=== PATIENT | female | born 1945 | race Caucasian/White ===

== ENCOUNTER → 2016-07-05 | Outpatient (CLI) | payer OTHER | LOC: FIMAGING 09:40 | PROVIDERS: ATTEND Nurse Practitioner Adult Health | DX: Z13.820 Encounter for screening for osteoporosis (principal); M85.80 Other specified disorders of bone density and structure, unspecified site; Z78.0 Asymptomatic menopausal state ==

== ENCOUNTER → 2016-10-04 | Outpatient (CLI) | payer OTHER | LOC: FIMAGING 09:43 | PROVIDERS: ATTEND Family Medicine | DX: Z12.31 Encounter for screening mammogram for malignant neoplasm of breast (principal); Z80.3 Family history of malignant neoplasm of breast | CPT/HCPCS: G0202 ==

== ENCOUNTER 2016-10-07 20:03 | Inpatient (IN) | payer OTHER ==
[2016-10-07] MEDS ORDERED: ONDANSETRON 4 MG/2 ML VIAL ONE (20:41)
[2016-10-07] MEDS ORDERED: NS 1,000 ML IV ONE (20:55)
[2016-10-07] MEDS ORDERED: ONDANSETRON 4 MG/2 ML VIAL IVP ONE (20:55)
--- NOTE | 2016-10-07 21:03 | EDPHY ---
H & P Stated Complaint: abd pain since 1729, +N/V Time Seen by Provider: 10/07/16 20:43 HPI/ROS: Chief Complaint: Abdominal pain HPI: 71-year-old woman with a history of colon cancer status post hemicolectomy years ago began having epigastric abdominal pain radiating down lower at 5:30 this evening. Patient has had similar episodes in the past. For prior episodes she would lay down flat on her back for 20 minutes and the pain would subsided. Patient states that tonight the pain has persisted for the last 3 and 0.5 hours. She has never had it last this long before. She did have some nausea and vomited once. No hematemesis. Had 2 normal bowel movements today. No constipation or diarrhea. No melena. No fevers or chills. No chest pain or shortness of breath. No urinary symptoms. ROS: PMH: Colon cancer status post hemicolectomy, glaucoma Medications: Glaucoma drops Allergies: None Social History: No smoking, occasional alcohol, no recreational drug use Family History: non-contributory Physical Exam: Gen: Awake, Alert, No Distress HEENT: Nose: no rhinorrhea Eyes: PERRLA, EOMI Mouth: Moist mucosa Neck: Supple, no JVD Chest: nontender, lungs clear to auscultation Heart: S1, S2 normal, no murmur Abd: Bowel sounds are hypoactive, Soft, diffusely tender, primarily in the right upper quadrant epigastric, voluntary guarding Back: no CVA tenderness, no midline tenderness Ext: no edema, non-tender Skin: no rash Neuro: CN II-XII intact, Sensation grossly intact, Strength 5/5 in bilateral upper and lower extremities - Personal History Current Tetanus/Diphtheria Vaccine: Yes - Medical/Surgical History Hx Asthma: No Hx Chronic Respiratory Disease: No Hx Diabetes: No Hx Cardiac Disease: No Hx Renal Disease: No Hx Cirrhosis: No Hx Alcoholism: No Hx HIV/AIDS: No Hx Splenectomy or Spleen Trauma: No Other PMH: PSHx: R hemicolectomy, R AVM. PMHx: glaucoma - Social History Smoking Status: Never smoked Constitutional: Initial Vital Signs Temperature (C) 36.8 C 10/07/16 20:07 Heart Rate 56 L 10/07/16 20:07 Respiratory Rate 16 10/07/16 20:07 Blood Pressure 128/86 H 10/07/16 20:07 O2 Sat (%) 96 10/07/16 20:07 O2 Delivery Mode Room Air Allergies/Adverse Reactions: No Known Allergies Allergy (Unverified 10/07/16 20:07) Medical Decision Making - Diagnostics Imaging Results: Small-bowel obstruction with a transition point at the distal jejunum or proximal ilium. Interpreted by Dr. Zamudio Imaging: Discussed imaging studies w/ call center specialist Radiologist ED Course/Re-evaluation: 71-year-old woman with patient history of hemicolectomy in the past now with a small bowel obstruction. Will discuss with General surgery, Dr. Heck. Dr Heck will see in ED.. He is requesting NGT. I have discussed with Dr Stan Finley, Hospitalist. He will admit for further care. - Data Points Laboratory Results: Laboratory Results 10/07/16 20:50 10/07/16 20:50 10/07/16 10/07/16 20:50 20:50 WBC 5.07 10^3/uL 10^3/uL (3.80-9.50) RBC 5.10 10^6/uL 10^6/uL (4.18-5.33) Hgb 13.7 g/dL g/dL (12.6-16.3) Hct 42.6 % % (38.0-47.0) MCV 83.5 fL fL (81.5-99.8) MCH 26.9 pg L pg (27.9-34.1) MCHC 32.2 g/dL L g/dL (32.4-36.7) RDW 14.0 % % (11.5-15.2) Plt Count 225 10^3/uL 10^3/uL (150-400) MPV 10.2 fL fL (8.7-11.7) Neut % (Auto) 57.8 % % (39.3-74.2) Lymph % (Auto) 32.7 % % (15.0-45.0) [place] % (Auto) 6.3 % % (4.5-13.0) Eos % (Auto) 2.2 % % (0.6-7.6) Baso % (Auto) 0.8 % % (0.3-1.7) Nucleat RBC Rel Count 0.0 % % (0.0-0.2) Absolute Neuts (auto) 2.93 10^3/uL 10^3/uL (1.70-6.50) Absolute Lymphs (auto) 1.66 10^3/uL 10^3/uL (1.00-3.00) Absolute Monos (auto) 0.32 10^3/uL 10^3/uL (0.30-0.80) Absolute Eos (auto) 0.11 10^3/uL 10^3/uL (0.03-0.40) Absolute Basos (auto) 0.04 10^3/uL 10^3/uL (0.02-0.10) Absolute Nucleated RBC 0.00 10^3/uL 10^3/uL (0-0.01) Immature Gran % 0.2 % % (0.0-1.1) Immature Gran # 0.01 10^3/uL 10^3/uL (0.00-0.10) Sodium 141 mEq/L mEq/L (134-144) Potassium 4.0 mEq/L mEq/L (3.5-5.2) Chloride 99 mEq/L mEq/L (97-110) Carbon Dioxide 30 mEq/l mEq/l (22-31) Anion Gap 12 mEq/L mEq/L (8-16) BUN 26 mg/dL H mg/dL (7-23) Creatinine 0.8 mg/dL mg/dL (0.6-1.0) Estimated GFR > 60 Glucose 114 mg/dL H mg/dL (70-100) Calcium 10.7 mg/dL H mg/dL (8.5-10.4) Phosphorus 4.8 mg/dL H mg/dL (2.5-4.5) Total Bilirubin 0.8 mg/dL mg/dL (0.1-1.4) Conjugated Bilirubin 0.1 mg/dL mg/dL (0.0-0.5) Unconjugated Bilirubin 0.7 mg/dL mg/dL (0.0-1.1) AST 36 IU/L IU/L (14-46) ALT 32 IU/L IU/L (9-52) Alkaline Phosphatase 80 IU/L IU/L (38-126) Total Protein 8.1 g/dL g/dL (6.3-8.2) Albumin 4.9 g/dL g/dL (3.5-5.0) Lipase 75.0 IU/L IU/L (23-300) Medications Given: Discontinued Medications Sodium Chloride (Ns) 1,000 mls @ 3,000 mls/hr IV ONCE ONE Stop: 10/07/16 21:14 Last Admin: 10/07/16 20:56 Dose: 1,000 mls Morphine Sulfate (Morphine) 4 mg IVP ONCE ONE Stop: 10/07/16 21:04 Last Admin: 10/07/16 21:15 Dose: 4 mg Ondansetron HCl (Zofran) 4 mg IVP EDNOW ONE Stop: 10/07/16 20:56 Last Admin: 10/07/16 20:56 Dose: 4 mg Departure - Departure Disposition: [facility] Inpatient Acute Clinical Impression: Small bowel obstruction Condition: Fair Referrals: Merle Ko NP [Primary Care Provider] - As per Instructions
[2016-10-07 21:15] LABS: ALANINE AMINOTRANSFERASE 32 IU/L (9-52); ALBUMIN 4.9 g/dL (3.5-5.0); ALKALINE PHOSPHATASE 80 IU/L (38-126); ANION GAP 12 mEq/L (8-16); ASPARTATE AMINOTRANSFERASE 36 IU/L (14-46); BILIRUBIN,TOTAL 0.8 mg/dL (0.1-1.4); BILIRUBIN-CONJUGATED 0.1 mg/dL (0.0-0.5); BILIRUBIN-UNCONJUGATED 0.7 mg/dL (0.0-1.1); CALCIUM 10.7 mg/dL (8.5-10.4); CARBON DIOXIDE 30 mEq/l (22-31); CHLORIDE 99 mEq/L (97-110); CREATININE 0.8 mg/dL (0.6-1.0); GLOMERULAR FILTRATION RATE > 60; GLUCOSE 114 mg/dL (70-100); SODIUM 141 mEq/L (134-144); TOTAL PROTEIN 8.1 g/dL (6.3-8.2)
[2016-10-07 21:21] LABS: % IMMATURE GRANULYOCYTES 0.2 % (0.0-1.1); ABSOLUTE IMMATURE GRANULOCYTES 0.01 10^3/uL (0.00-0.10); ADD DIFF? NO; ADD MORPH? NO; ADD SCAN? NO; ATYPICAL LYMPHOCYTE FLAG 10 (0-99); FRAGMENT RBC FLAG 0 (0-99); HEMATOCRIT 42.6 % (38.0-47.0); HEMOGLOBIN 13.7 g/dL (12.6-16.3); LEFT SHIFT FLG 0 (0-99); LIPEMIA HEMOLYSIS FLAG 80 (0-99); MEAN CELL HEMOGLOBIN 26.9 pg (27.9-34.1); MEAN CELL HEMOGLOBIN CONCENTR. 32.2 g/dL (32.4-36.7); MEAN CELL VOLUME 83.5 fL (81.5-99.8); MEAN PLATELET VOLUME 10.2 fL (8.7-11.7); PLATELET CLUMPS FLAG 0 (0-99); PLATELET COUNT 225 10^3/uL (150-400)
[2016-10-07] MEDS ORDERED: IOPAMIDOL (ISOVUE-300) 100 ML BTL ONE (21:32)
[2016-10-07] MEDS ORDERED: LIDOCAINE 2% JELLY 20 ML (UROJECT) ONE (22:24)
--- NOTE | 2016-10-07 23:51 | PDGENHP ---
History and Physical - Chief Complaint abdominal pain - History of Present Illness this is a 71-year-old female with history of colon cancer diagnosed 21 years ago underwent chemotherapy and right hemicolectomy presented to the emergency department today with sudden onset of abdominal pain. The pain began at 5:30 a.m. at this evening it was described as a 7/10 sharp crampy pain that came in waves. She had 1 episode of vomiting that was described as nonbloody. She is not passing any gas. Prior to this episode of abdominal pain she has been in her usual good state of health. She denies any fevers or chills. She has not had any weight loss. History Information - Allergies/Home Medication List Allergies/Adverse Reactions: No Known Allergies Allergy (Unverified 10/07/16 20:07) I have personally reviewed and updated: family history, medical history, social history, surgical history Past Medical History: Colon cancer diagnosed 21 years ago treated with chemotherapy and right hemicolectomy - Family History Additional family history: colon cancer in her maternal grandmother - Social History Smoking Status: Never smoked Alcohol Use: None Drug Use: None Review of Systems ROS: 10pt was reviewed & negative except for what was stated in HPI & below Physical Exam Temp Pulse Resp BP Pulse Ox 36.8 C 60 14 138/85 H 94 10/07/16 23:40 10/07/16 23:40 10/07/16 23:40 10/07/16 23:40 10/07/16 23:40 Constitutional: no apparent distress, appears nourished, not in pain Eyes: PERRL, anicteric sclera, EOMI Ears, Nose, Mouth, Throat: moist mucous membranes, hearing normal, ears appear normal, no oral mucosal ulcers, other ( NG tube in place) Cardiovascular: regular rate and rhythym, no murmur, rub, or gallop, No edema Respiratory: no respiratory distress, no rales or rhonchi, clear to auscultation Gastrointestinal: soft, non-tender abdomen, no palpable masses, tenderness ( diffuse), distension, other ( hypoactive bowel sounds), No guarding, No rebound Genitourinary: no bladder fullness, no bladder tenderness Skin: warm, normal color, no rashes or abrasions, no fluctuance, no induration, No mottled Neurologic: AAOx3, CN II-XII Intact, No facial droop Psychiatric: interacting appropriately, not anxious, not encephalopathic, thought process linear Lymph, Heme, Immunologic: no cervical LAD, no supraclavicular LAD Lab Data & Imaging Review 10/07/16 20:50 10/07/16 20:50 WBC 5.07 10^3/uL (3.80-9.50) 10/07/16 20:50 RBC 5.10 10^6/uL (4.18-5.33) 10/07/16 20:50 Hgb 13.7 g/dL (12.6-16.3) 10/07/16 20:50 Hct 42.6 % (38.0-47.0) 10/07/16 20:50 MCV 83.5 fL (81.5-99.8) 10/07/16 20:50 MCH 26.9 pg (27.9-34.1) L 10/07/16 20:50 MCHC 32.2 g/dL (32.4-36.7) L 10/07/16 20:50 RDW 14.0 % (11.5-15.2) 10/07/16 20:50 Plt Count 225 10^3/uL (150-400) 10/07/16 20:50 MPV 10.2 fL (8.7-11.7) 10/07/16 20:50 Neut % (Auto) 57.8 % (39.3-74.2) 10/07/16 20:50 Lymph % (Auto) 32.7 % (15.0-45.0) 10/07/16 20:50 [place] % (Auto) 6.3 % (4.5-13.0) 10/07/16 20:50 Eos % (Auto) 2.2 % (0.6-7.6) 10/07/16 20:50 Baso % (Auto) 0.8 % (0.3-1.7) 10/07/16 20:50 Nucleat RBC Rel Count 0.0 % (0.0-0.2) 10/07/16 20:50 Absolute Neuts (auto) 2.93 10^3/uL (1.70-6.50) 10/07/16 20:50 Absolute Lymphs (auto) 1.66 10^3/uL (1.00-3.00) 10/07/16 20:50 Absolute Monos (auto) 0.32 10^3/uL (0.30-0.80) 10/07/16 20:50 Absolute Eos (auto) 0.11 10^3/uL (0.03-0.40) 10/07/16 20:50 Absolute Basos (auto) 0.04 10^3/uL (0.02-0.10) 10/07/16 20:50 Absolute Nucleated RBC 0.00 10^3/uL (0-0.01) 10/07/16 20:50 Immature Gran % 0.2 % (0.0-1.1) 10/07/16 20:50 Immature Gran # 0.01 10^3/uL (0.00-0.10) 10/07/16 20:50 Sodium 141 mEq/L (134-144) 10/07/16 20:50 Potassium 4.0 mEq/L (3.5-5.2) 10/07/16 20:50 Chloride 99 mEq/L (97-110) 10/07/16 20:50 Carbon Dioxide 30 mEq/l (22-31) 10/07/16 20:50 Anion Gap 12 mEq/L (8-16) 10/07/16 20:50 BUN 26 mg/dL (7-23) H 10/07/16 20:50 Creatinine 0.8 mg/dL (0.6-1.0) 10/07/16 20:50 Estimated GFR > 60 10/07/16 20:50 Glucose 114 mg/dL (70-100) H 10/07/16 20:50 Calcium 10.7 mg/dL (8.5-10.4) H 10/07/16 20:50 Phosphorus 4.8 mg/dL (2.5-4.5) H 10/07/16 20:50 Total Bilirubin 0.8 mg/dL (0.1-1.4) 10/07/16 20:50 Conjugated Bilirubin 0.1 mg/dL (0.0-0.5) 10/07/16 20:50 Unconjugated Bilirubin 0.7 mg/dL (0.0-1.1) 10/07/16 20:50 AST 36 IU/L (14-46) 10/07/16 20:50 ALT 32 IU/L (9-52) 10/07/16 20:50 Alkaline Phosphatase 80 IU/L (38-126) 10/07/16 20:50 Total Protein 8.1 g/dL (6.3-8.2) 10/07/16 20:50 Albumin 4.9 g/dL (3.5-5.0) 10/07/16 20:50 Lipase 75.0 IU/L (23-300) 10/07/16 20:50 Visualized and Interpreted imaging results: Yes Interpretation: 1. High-grade mid to distal small bowel obstruction with transition point in the midpelvis. 2. Constipation. 3. Multiple hepatic cysts. 4. No significant adenopathy. 5. Atherosclerotic aorta without aneurysm. Assessment & Plan Assessment: This is a 71-year-old female with remote history of colon cancer presenting with : #Small bowel obstruction (Acute) - Continue conservative treatment as recommended by Dr. Heck - IV fluids - antiemetics - NG tube for gastric decompression # hypercalcemia likely due to volume depletion - start IV fluids and repeat calcium level in the morning # history of colon cancer - recommend colon cancer screening as indicated disposition: The patient will be placed on observation. Will defer starting medications for DVT prophylaxis at this time.
[2016-10-07] MEDS ORDERED: ZOLPIDEM TARTRATE 5 MG TAB PO PRN (23:54)
[2016-10-07] MEDS ORDERED: ACETAMINOPHEN 325 MG TAB PO PRN (23:54)
[2016-10-07] MEDS ORDERED: PROMETHAZINE HCL 25 MG/ML INJ IVP PRN (23:54)
--- NOTE | 2016-10-08 00:02 | GCON ---
[f rep st] CONSULTATION REASON FOR CONSULTATION: Bowel obstruction. HISTORY: The patient is a 71-year-old white female, who 21 years ago underwent a right colon resection for colon carcinoma. She reports no other abdominal surgeries. She has on occasion (1 or 2 times a year) abdominal bloating. She makes herself feel better by lying down and subsequently burping. This did not start after the above-mentioned surgery but, in fact, predated it. Today, she had cheese and crackers at 4:30. At 5:30, she started having bloating, abdominal pain, which was characterized as constant with a wave-like component to it. It was dull. She felt bloated. At 6 p.m. because they were going out, she had dinner, which made her feel worse. She arrived at the ER at 8 p.m. and was evaluated. A CAT scan showed a proximal small bowel obstruction. I was asked to come see the patient in consultation. SOCIAL HISTORY: She does not smoke. She has 1 glass of wine several times a week. ALLERGIES: She has no known drug allergies. MEDICATIONS: Only medication is latanoprost - 1 drop right eye for glaucoma of 1 year's duration. PAST SURGICAL HISTORY: Other surgeries have included right arm AV malformation surgery. She had tonsil surgery and showed a right breast biopsy. She has had 2 thyroid biopsies (benign, dx unknown). PAST MEDICAL HISTORY: There is no history of rheumatic fever, tuberculosis, hepatitis, or transfusions. REVIEW OF SYSTEMS: She has had 2 concussions. She has dental crowns. She has a "gnarly" thyroid, but both biopsies have been reported as unremarkable. Her last mammogram was last week and normal. Last Pap smear was approximately a year plus ago and normal. She has minimal stress incontinence. She did bike 40 miles this morning and does work out on a regular basis. There is no history of steroid use. PHYSICAL EXAMINATION: GENERAL: She is awake, alert, oriented, and pleasant. HEENT: Her skull is normocephalic and atraumatic. NEUROLOGIC: No focal lateralizing neurologic findings. LYMPHATICS: There is no cervical, supraclavicular, or axillary inguinal lymphadenopathy. NECK: The thyroid is firm. The neck is supple and nontender. BACK: Unremarkable. LUNGS: Clear to auscultation. CARDIAC: Shows S1, S2 to be normal. ABDOMEN: She states her abdomen feels better than when she came in. She has received narcotics. She has several normal and not high-pitched bowel sounds at this time. To percussion, I do not appreciate tympany. She is most tender in the right lower quadrant to periumbilical region. LABORATORY DATA: Reveal a white count of 5.7, hematocrit of 42, platelets of 225. BUN of 26, creatinine of 0.8, and a calcium of 10.7. IMAGING DATA: Reviewing the CAT scan, she has multiple hepatic cysts. I do not clearly see the gallbladder and wonder if it was not removed at the time of her right colon resection. There appears to be a central spiraling of the mesentery with a transition point. This is in the right lower quadrant near the umbilicus. I do not appreciate any hernias. Her stomach is quite full on CAT scan. An NG tube will shortly be placed. She will be placed on NG suction overnight. An abdominal flat and upright x-ray will be planned for the morning. I discussed with both the patient and her that there is a high chance that this will resolve without surgical intervention, but I cannot guarantee it will resolve without surgical intervention. /[id number]/MODL MTDD
[2016-10-08] MEDS: ONDANSETRON 4 MG/2 ML VIAL IVP PRN ×3 (00:24→11:03)
[2016-10-08] MEDS: D5W 1/2 NS W/ 20 KCl/L 1,000 ML IV SCH ×3 (00:24→16:44)
[2016-10-08 05:57] LABS: ANION GAP 7 mEq/L (8-16); CALCIUM 9.2 mg/dL (8.5-10.4); CARBON DIOXIDE 27 mEq/l (22-31); CHLORIDE 105 mEq/L (97-110); CREATININE 0.8 mg/dL (0.6-1.0); GLOMERULAR FILTRATION RATE > 60; GLUCOSE 169 mg/dL (70-100); POTASSIUM 4.9 mEq/L (3.5-5.2); SODIUM 139 mEq/L (134-144)
--- NOTE | 2016-10-08 08:23 | HOSPPROG ---
Hospitalist Progress Note Assessment/Plan: patient is a 71-year-old female who presented to the emergency room with abdominal pain. She has a remote history of colon cancer. Today is my 1st encounter with the patient. Chart reviewed. Reviewed her care w Dr Gallegos. #Small bowel obstruction (Acute) IV fluids and antiemetics and NG placed for gastric decompression still having pain this morning/ abd xray pending # hypercalcemia likely due to volume depletion - resolved with hydration # history of colon cancer - recommend colon cancer screening as indicated disposition: will need another midnight stay due to the pain, not eating and NG placement. Subjective: Tali said her pain is well controlled with the morphine. Objective: Vital Signs Temp Pulse Resp BP Pulse Ox 36.6 C 54 L 14 141/71 H 100 10/08/16 07:55 10/08/16 07:55 10/08/16 07:55 10/08/16 07:55 10/08/16 07:55 Laboratory Results 10/08/16 04:53 10/07/16 10/08/16 10/09/16 05:59 05:59 05:59 Intake Total 1000 Output Total 420 Balance 580 - Physical Exam Constitutional: uncomfortable Eyes: PERRL Ears, Nose, Mouth, Throat: hearing normal Cardiovascular: regular rate and rhythym Respiratory: no respiratory distress Gastrointestinal: soft, non-tender abdomen, No normoactive bowel sounds ( hypoactive) Skin: warm, normal color Musculoskeletal: full muscle strength Neurologic: AAOx3 Psychiatric: interacting appropriately ICD10 Worksheet Patient Problems: Problems Problem Status Onset Small bowel obstruction Acute
[2016-10-08 11:48] VITALS: RESP 16
--- NOTE | 2016-10-08 16:25 | SOAPPROG ---
SOAP Progress Note Assessment/Plan: Assessment/Plan: 71yo F c SBO - KUB this AM shows distention about the same. NGT is in the appropriate position. We have been flushing the tube and have had better results with that as the output has increased. Her abdomen remains minimally distended and relatively nontender. Continue conservative management for the time being. If we can stop her vomiting and decompress her stomach would attempt SBFT before calling failed cons mgmt. 10/08/16 16:23 Objective: Vital Signs Temp Pulse Resp BP Pulse Ox 37.0 C 55 L 16 121/66 H 99 10/08/16 16:19 10/08/16 16:19 10/08/16 16:19 10/08/16 16:19 10/08/16 16:19 10/07/16 10/08/16 10/09/16 05:59 05:59 05:59 Output Total 300 Balance -300 ICD10 Worksheet Patient Problems: Problems Problem Status Onset Small bowel obstruction Acute
[2016-10-08] MEDS: HYDROmorphONE/DILAUDID 1 MG/ML SYR IVP PRN ×2 (16:32→21:39)
[2016-10-08] MEDS: LATANOPROST 0.005% 2.5 ML OPHT DROPS EACHEYE SCH (21:38)
[2016-10-09 05:26] LABS: % IMMATURE GRANULYOCYTES 0.2 % (0.0-1.1); ABSOLUTE IMMATURE GRANULOCYTES 0.01 10^3/uL (0.00-0.10); ADD DIFF? NO; ADD MORPH? NO; ADD SCAN? NO; ATYPICAL LYMPHOCYTE FLAG 10 (0-99); FRAGMENT RBC FLAG 0 (0-99); HEMATOCRIT 37.5 % (38.0-47.0); HEMOGLOBIN 11.8 g/dL (12.6-16.3); LEFT SHIFT FLG 20 (0-99); LIPEMIA HEMOLYSIS FLAG 80 (0-99); MEAN CELL HEMOGLOBIN 26.8 pg (27.9-34.1); MEAN CELL HEMOGLOBIN CONCENTR. 31.5 g/dL (32.4-36.7); MEAN CELL VOLUME 85.2 fL (81.5-99.8); MEAN PLATELET VOLUME 10.7 fL (8.7-11.7); PLATELET CLUMPS FLAG 0 (0-99); PLATELET COUNT 183 10^3/uL (150-400); RED CELL DISTRIBUTION WIDTH 14.3 % (11.5-15.2)
[2016-10-09 05:50] LABS: ALANINE AMINOTRANSFERASE 29 IU/L (9-52); ALBUMIN 3.4 g/dL (3.5-5.0); ALKALINE PHOSPHATASE 48 IU/L (38-126); ANION GAP 7 mEq/L (8-16); ASPARTATE AMINOTRANSFERASE 21 IU/L (14-46); BILIRUBIN,TOTAL 1.4 mg/dL (0.1-1.4); CALCIUM 8.7 mg/dL (8.5-10.4); CARBON DIOXIDE 28 mEq/l (22-31); CHLORIDE 103 mEq/L (97-110); CREATININE 0.8 mg/dL (0.6-1.0); GLOMERULAR FILTRATION RATE > 60; GLUCOSE 107 mg/dL (70-100); POTASSIUM 4.4 mEq/L (3.5-5.2); SODIUM 138 mEq/L (134-144); TOTAL PROTEIN 5.5 g/dL (6.3-8.2)
--- NOTE | 2016-10-09 10:03 | HOSPPROG ---
Hospitalist Progress Note Assessment/Plan: patient is a 71-year-old female who presented to the emergency room with abdominal pain. She has a remote history of colon cancer. Reviewed her care with Dr Heck. #Small bowel obstruction (Acute) IV fluids and antiemetics and NG placed for gastric decompression pain has resolved and is having a few bowel sounds ordered an abd xray for further evaluation # hypercalcemia likely due to volume depletion - resolved with hydration # history of colon cancer - recommend colon cancer screening as indicated disposition: pending Subjective: Tali has no abdominal pain today/ feeling better. Objective: Vital Signs Temp Pulse Resp BP Pulse Ox 37.2 C 60 16 122/66 H 94 10/09/16 08:21 10/09/16 08:21 10/09/16 08:21 10/09/16 08:21 10/09/16 08:21 Laboratory Results 10/09/16 04:26 10/09/16 04:26 10/08/16 10/09/16 10/10/16 05:59 05:59 05:59 Intake Total 2896 Output Total 1400 600 Balance 1496 -600 - Physical Exam Constitutional: not in pain Eyes: PERRL Ears, Nose, Mouth, Throat: hearing normal Cardiovascular: regular rate and rhythym Respiratory: no respiratory distress Gastrointestinal: soft, non-tender abdomen, No normoactive bowel sounds ( hypoactive), No tenderness Skin: warm Musculoskeletal: full muscle strength Neurologic: AAOx3 Psychiatric: interacting appropriately, not anxious ICD10 Worksheet Patient Problems: Problems Problem Status Onset Small bowel obstruction Acute
--- NOTE | 2016-10-09 11:21 | SOAPPROG ---
SOAP Progress Note Assessment/Plan: 10/09/16 11:17 PAD#2 Assessment: SBO resolved! gas in descending colon and patient passing flatus Plan: Remove NG NPO except for meds until 4 PM Start clear liquids at 4PM IF tolerates clears for dinner and breakfast , advance to regular diet. If tolerates reg diet consider discharge. Consider a Small Bowel Follow Through in 2 weeks Encourage complete chewing of all foods. Subjective: "I'm passing gas!" Objective: Vital Signs Temp Pulse Resp BP Pulse Ox 37.2 C 60 16 122/66 H 94 10/09/16 08:21 10/09/16 08:21 10/09/16 08:21 10/09/16 08:21 10/09/16 08:21 Laboratory Results 10/09/16 04:26 10/09/16 04:26 10/08/16 10/09/16 10/10/16 05:59 05:59 05:59 Intake Total 2896 Output Total 1400 600 Balance 1496 -600 Physical Exam - Physical Exam General Appearance: WD/WN, alert, no apparent distress Abdomen: normal bowel sounds, non-tender, soft ICD10 Worksheet Patient Problems: Problems Problem Status Onset Small bowel obstruction Acute
[2016-10-09] MEDS: ENOXAPARIN 40 MG/0.4 ML SYR SC SCH (11:35)
[2016-10-09] MEDS: D5W 1/2 NS W/ 20 KCl/L 1,000 ML IV SCH (18:12)
[2016-10-09] MEDS: LATANOPROST 0.005% 2.5 ML OPHT DROPS EACHEYE SCH (21:04)
--- NOTE | 2016-10-10 08:51 | SOAPPROG ---
SOAP Progress Note Assessment/Plan: 10/09/16 11:17 PAD#2 Assessment: SBO resolved! gas in descending colon and patient passing flatus Plan: Remove NG NPO except for meds until 4 PM Start clear liquids at 4PM IF tolerates clears for dinner and breakfast , advance to regular diet. If tolerates reg diet consider discharge. Consider a Small Bowel Follow Through in 2 weeks Encourage complete chewing of all foods. PAD#3 10/10/16 08:44 Assessment: As she is passing flatus but bloats with eating and now recalls bloating in the recent past with meals, I feel that she has a moserate grade partiioal small bowel obstruction. If she continues to tolerate liquids (and subsequently a regular diet), the possibility of delayed w/u is possible ( she has a family reunion). I would recommend a SBFT in 10 days. If a partial SBO is Dx'd then she can decide if she wishes to proceed. If she does not tolerate this approach , intervention will proceed. Subjective: I have some bloating after eating ( as I have in the past) that resolves fairly promptly. Objective: Vital Signs Temp Pulse Resp BP Pulse Ox 36.8 C 62 16 125/78 H 93 10/10/16 07:33 10/10/16 07:33 10/10/16 07:33 10/10/16 07:33 10/10/16 07:33 Laboratory Results 10/09/16 04:26 10/09/16 04:26 10/09/16 10/10/16 10/11/16 05:59 05:59 05:59 Intake Total 5406 1195 Output Total 8064 700 Balance 3515 830 - Time Spent With Patient Time Spent With Patient: 25 Physical Exam - Physical Exam General Appearance: WD/WN, alert, no apparent distress Abdomen: normal bowel sounds, non-tender ICD10 Worksheet Patient Problems: Problems Problem Status Onset Small bowel obstruction Acute
[2016-10-10] MEDS: ENOXAPARIN 40 MG/0.4 ML SYR SC SCH (08:52)
--- NOTE | 2016-10-10 09:41 | HOSPPROG ---
Hospitalist Progress Note Assessment/Plan: patient is a 71-year-old female who presented to the emergency room with abdominal pain. She has a remote history of colon cancer. #Small bowel obstruction (Acute) NG removed yesterday and she tolerated clears, still bloated no further pain, has good bowel sounds likely a partial sBO reviewed care w Dr Heck and she will get a SBFT in a few weeks today's abd xray is pending # hypercalcemia likely due to volume depletion - resolved with hydration # history of colon cancer - recommend colon cancer screening as indicated disposition: if eating and drinking well, can dc home later this afternooon. Subjective: Tali has no c/o pain but is bloated. Objective: Vital Signs Temp Pulse Resp BP Pulse Ox 36.8 C 62 16 125/78 H 93 10/10/16 07:33 10/10/16 07:33 10/10/16 07:33 10/10/16 07:33 10/10/16 07:33 Laboratory Results 10/09/16 04:26 10/09/16 04:26 10/09/16 10/10/16 10/11/16 05:59 05:59 05:59 Intake Total 2896 1195 Output Total 1400 700 Balance 1496 495 - Physical Exam Constitutional: no apparent distress, appears nourished, not in pain Eyes: PERRL Ears, Nose, Mouth, Throat: hearing normal Cardiovascular: regular rate and rhythym Respiratory: no respiratory distress Gastrointestinal: normoactive bowel sounds, distension Skin: warm, normal color Musculoskeletal: full muscle strength Neurologic: AAOx3 Psychiatric: interacting appropriately ICD10 Worksheet Patient Problems: Problems Problem Status Onset Small bowel obstruction Acute
[2016-10-10] MEDS: LATANOPROST 0.005% 2.5 ML OPHT DROPS EACHEYE SCH (20:59)
[2016-10-10 21:42] VITALS: TEMP 98.6
[2016-10-11 08:04] VITALS: BP 131/77; PULSE 54; O2SAT 92
[2016-10-11] MEDS: ENOXAPARIN 40 MG/0.4 ML SYR SC SCH (10:37)
--- NOTE | 2016-10-11 11:41 | SOAPPROG ---
SOAP Progress Note Assessment/Plan: 10/09/16 11:17 PAD#2 Assessment: SBO resolved! gas in descending colon and patient passing flatus Plan: Remove NG NPO except for meds until 4 PM Start clear liquids at 4PM IF tolerates clears for dinner and breakfast , advance to regular diet. If tolerates reg diet consider discharge. Consider a Small Bowel Follow Through in 2 weeks Encourage complete chewing of all foods. PAD#3 10/10/16 08:44 Assessment: As she is passing flatus but bloats with eating and now recalls bloating in the recent past with meals, I feel that she has a moserate grade partiioal small bowel obstruction. If she continues to tolerate liquids (and subsequently a regular diet), the possibility of delayed w/u is possible ( she has a family reunion). I would recommend a SBFT in 10 days. If a partial SBO is Dx'd then she can decide if she wishes to proceed. If she does not tolerate this approach , intervention will proceed. PAD#4 10/11/16 11:36 Assessment: Patient continues to feel better and better. Less distended, moving bowels, passing flatus and eating a regular diet. Bowel sound NOT obstructive. Plan: As she is improving I continue to favor the approach outlined above. Subjective: "I'm feeling better" Objective: Vital Signs Temp Pulse Resp BP Pulse Ox 37 C 54 L 16 131/77 H 92 10/10/16 21:41 10/11/16 08:02 10/11/16 08:02 10/11/16 08:02 10/11/16 08:02 Laboratory Results 10/09/16 04:26 10/09/16 04:26 10/10/16 10/11/16 10/12/16 05:59 05:59 05:59 Intake Total 1195 Output Total 700 Balance 495 Physical Exam - Physical Exam General Appearance: WD/WN, alert, no apparent distress Abdomen: normal bowel sounds, non-tender, soft, distended ICD10 Worksheet Patient Problems: Problems Problem Status Onset Small bowel obstruction Acute
--- NOTE | 2016-10-11 12:24 | HOSPPROG ---
Hospitalist Progress Note Assessment/Plan: patient is a 71-year-old female who presented to the emergency room with abdominal pain. She has a remote history of colon cancer. #Small bowel obstruction (Acute)/likely partial tolerating reg diet, but has eat slowly is very bloated # hypercalcemia likely due to volume depletion - resolved with hydration # history of colon cancer - recommend colon cancer screening as indicated disposition:dc home/ to get a SBFT in approximately 10 days Subjective: Tali is feeling much better today/less bloated. Objective: Vital Signs Temp Pulse Resp BP Pulse Ox 37 C 54 L 16 131/77 H 92 10/10/16 21:41 10/11/16 08:02 10/11/16 08:02 10/11/16 08:02 10/11/16 08:02 Laboratory Results 10/09/16 04:26 10/09/16 04:26 10/10/16 10/11/16 10/12/16 05:59 05:59 05:59 Intake Total 1195 Output Total 700 Balance 495 - Physical Exam Constitutional: no apparent distress, appears nourished, not in pain Eyes: PERRL Ears, Nose, Mouth, Throat: moist mucous membranes Respiratory: no respiratory distress Gastrointestinal: normoactive bowel sounds, distension (slight) Skin: warm, normal color Musculoskeletal: full muscle strength Neurologic: AAOx3 Psychiatric: interacting appropriately, not anxious ICD10 Worksheet Patient Problems: Problems Problem Status Onset Small bowel obstruction Acute
--- NOTE | 2016-10-11 14:13 | GDS ---
[f rep st] DISCHARGE SUMMARY DISCHARGE DIAGNOSES: 1. Small bowel obstruction. 2. Hypercalcemia. 3. History of colon cancer. CONSULTATIONS DURING STAY: Jose Heck MD, with surgical services. BRIEF HISTORY: The patient is a 71-year-old female with a history of colon cancer diagnosed approximately 21 years ago. She underwent chemotherapy and a right hemicolectomy at that time. She presented to the ER with sudden onset of abdominal pain. She had a CT of the abdomen performed, which showed a high- grade mid to distal small bowel obstruction with transition point in the mid pelvis. She was seen and evaluated by Dr. Heck and given conservative therapy. Throughout her stay, she has had multiple abdominal x-rays. There was concern that she has a partial small bowel obstruction, but she is tolerating eating a regular diet. The plan is for her to be discharged home, to get a small-bowel followthrough in approximately 10 weeks. If her symptoms should return, she needs to return to the emergency room. HOSPITAL COURSE: 1. Small-bowel obstruction. Tolerating food slowly. She would like to continue conservative care and avoid surgery. 2. Hypercalcemia. This resolved with hydration. 3. History of colon cancer. Recommending colon cancer screening as indicated. PENDING LABS AND TESTS: None. CONDITION AT DISCHARGE: Stable. VITAL SIGNS: Blood pressure is 131/77, heart rate is 54, respiratory rate is 16 , O2 sats on room air are 92%. Temperature 37 degrees Celsius. MEDICATIONS AT DISCHARGE: Please see the EMR. DISCHARGE INSTRUCTIONS: 1. If she develops any further abdominal pain that resembles what she had on this admission, to return to the ER. 2. If she develops fever, chills, chest pain, or shortness of breath, return to the ER. TIME SPENT: Greater than 30 minutes discharging and coordinating care. /[id number]/MODL MTDD
== END 2016-10-11 14:11 | disposition home or self-care (01) | DRG 390 ==
LOC: INTOOBSV 22:15 → F3E 23:37 → OBSVTOIN 10-08 14:04
PROVIDERS: ADMIT Family Medicine; ATTEND Family Medicine
DX: K56.60 Unspecified intestinal obstruction (principal); E83.52 Hypercalcemia; Z85.038 Personal history of other malignant neoplasm of large intestine
CPT/HCPCS: 96374; G0378; J1170; J1650; J2405; J2550; Q9967

== ENCOUNTER → 2016-10-19 | Outpatient (CLI) | payer OTHER | LOC: FIMAGING 09:34 | PROVIDERS: ATTEND Internal Medicine Gastroenterology | DX: Z87.19 Personal history of other diseases of the digestive system (principal); Z85.038 Personal history of other malignant neoplasm of large intestine ==

== ENCOUNTER → 2017-04-07 | Outpatient (CLI) | payer OTHER | LOC: FIMAGING 14:18 | PROVIDERS: ATTEND Internal Medicine Endocrinology, Diabetes & Metabolism | DX: E04.2 Nontoxic multinodular goiter (principal) ==

== ENCOUNTER → 2017-10-05 | Outpatient (CLI) | payer OTHER | LOC: FIMAGING 11:17 | PROVIDERS: ATTEND Nurse Practitioner Adult Health | DX: Z12.31 Encounter for screening mammogram for malignant neoplasm of breast (principal); Z80.3 Family history of malignant neoplasm of breast ==

== ENCOUNTER → 2018-10-05 | Outpatient (CLI) | payer OTHER | LOC: FIMAGING 10:10 ==